=== PATIENT | female | born 1945 | race Caucasian/White ===

== ENCOUNTER → 2018-05-29 | Outpatient (CLI) | payer OTHER | END | disposition home or self-care (01) | LOC: CVU 14:09 | PROVIDERS: ATTEND Internal Medicine Cardiovascular Disease | DX: I34.0 Nonrheumatic mitral (valve) insufficiency (principal); I34.1 Nonrheumatic mitral (valve) prolapse; I11.9 Hypertensive heart disease without heart failure; I73.9 Peripheral vascular disease, unspecified; E78.5 Hyperlipidemia, unspecified; I25.10 Atherosclerotic heart disease of native coronary artery without angina pectoris; Z95.5 Presence of coronary angioplasty implant and graft; Z95.1 Presence of aortocoronary bypass graft | CPT/HCPCS: 93306; 93922 ==

== ENCOUNTER 2018-06-07 08:11 | Day surgery (SDC) | payer OTHER ==
[~2018-06-07] VITALS: Ht 165.1 cm; Wt 82.7 kg
[2018-06-07 08:42] VITALS: BP 141/89
[2018-06-07] MEDS ORDERED: PLEASE ENTER HEIGHT AND WEIGHT MC SCH (09:00)
[2018-06-07] MEDS ORDERED: SODIUM CHLORIDE 0.9% 1,000 ML IV SCH (09:00)
[2018-06-07] MEDS ORDERED: CARV6.252 PO (09:03)
[2018-06-07] MEDS ORDERED: FLUT9.9S NAS (09:10)
[2018-06-07] MEDS ORDERED: CLOP75TA52 PO (09:10)
[2018-06-07] MEDS ORDERED: VALS1TAB22 PO (09:10)
[2018-06-07] MEDS ORDERED: EZET1TAB64 PO (09:10)
[2018-06-07] MEDS ORDERED: WARF2TAB PO (09:10)
[2018-06-07] MEDS ORDERED: LEVO100T PO (09:10)
[2018-06-07] MEDS ORDERED: SERT100T5 PO (09:10)
[2018-06-07] MEDS ORDERED: PROPOFOL 10 MG/ML, 20ML ONE (09:18)
== END 2018-06-07 11:30 | disposition home or self-care (01) ==
LOC: CACL 08:11
PROVIDERS: ATTEND Internal Medicine Cardiovascular Disease
DX: I34.0 Nonrheumatic mitral (valve) insufficiency (principal); I36.1 Nonrheumatic tricuspid (valve) insufficiency; I34.1 Nonrheumatic mitral (valve) prolapse; I25.10 Atherosclerotic heart disease of native coronary artery without angina pectoris; I10 Essential (primary) hypertension; E78.5 Hyperlipidemia, unspecified; Z98.890 Other specified postprocedural states; Z79.899 Other long term (current) drug therapy; Z88.8 Allergy status to other drugs, medicaments and biological substances; Z88.1 Allergy status to other antibiotic agents; Z86.718 Personal history of other venous thrombosis and embolism; Z95.1 Presence of aortocoronary bypass graft
CPT/HCPCS: 93312; 93320; 93325; J2704

== ENCOUNTER → 2021-03-15 | Outpatient (CLI) | payer OTHER ==
[~2021-03-15] MED LIST: CARV6.252 PO; CLOP75TA52 PO; EZET-56 PO; FLUT9.9S NAS; LEVO100T PO; SERT100T32 PO; VALS1TAB22 PO; WARF2TAB PO
== END | disposition home or self-care (01) ==
LOC: CFH 10:02
PROVIDERS: ATTEND Student in an Organized Health Care Education/Training Program
DX: I08.1 Rheumatic disorders of both mitral and tricuspid valves (principal); I11.9 Hypertensive heart disease without heart failure
CPT/HCPCS: 93306; 93356

== ENCOUNTER 2021-04-28 07:04 | Day surgery (SDC) | payer MEDICARE, OTHER ==
[~2021-04-28] VITALS: Ht 165.1 cm; Wt 80.0 kg
[2021-04-28] MEDS ORDERED: SODIUM CHLORIDE 0.9% 1,000 ML IV ONE (08:00)
[2021-04-28] MEDS ORDERED: PLEASE ENTER HEIGHT AND WEIGHT MC SCH (08:00)
[2021-04-28 08:46] LABS: BASOPHILS % (AUTO) 1 % (0-1); EOSINOPHILS % (AUTO) 4 % (1-7); LYMPHOCYTES % (AUTO) 26 % (22-44); MEAN CORPUSCULAR HEMOGLOBIN 29.3 pg (27.0-34.8); MEAN CORPUSCULAR HGB CONC 33.8 g/dL (32.4-35.8); MEAN PLATELET VOLUME 7.9 fL (7.4-10.4); MONOCYTES % (AUTO) 10 % (2-9); NEUTROPHILS % (AUTO) 60 % (42-75); PLATELET COUNT 228 x10^3/uL (130-400); RED BLOOD COUNT 4.36 x10^6/uL (3.82-5.3); RED CELL DISTRIBUTION WIDTH 13.6 % (9.6-15.2)
[2021-04-28 08:52] LABS: INTERNATIONAL NORMALIZED RATIO 1.83 (0.93-1.1)
[2021-04-28 08:54] LABS: ANION GAP 6 mmol/L (5-15); CALCIUM 8.1 mg/dL (8.5-10.1); CHLORIDE 107 mmol/L (98-107); CREATININE 0.62 mg/dL (0.55-1.02)
[2021-04-28] MEDS ORDERED: FENTANYL PF 100 MCG/2ML ONE (11:31)
[2021-04-28] MEDS ORDERED: LIDOCAINE-MPF 1%, 5ML ONE (11:31)
[2021-04-28] MEDS ORDERED: HEPARIN 1,000 UNITS/ML, 10ML ONE (11:31)
[2021-04-28] MEDS ORDERED: MIDAZOLAM 1 MG/ML, 2ML ONE (11:31)
[2021-04-28] MEDS ORDERED: VERAPAMIL 2.5 MG/ML, 2ML ONE (11:31)
[2021-04-28] MEDS ORDERED: SODIUM CHLORIDE 0.9% 1,000 ML IV SCH (14:00)
== END 2021-04-28 15:43 | disposition home or self-care (01) ==
LOC: CACL 07:04
PROVIDERS: ATTEND Internal Medicine Cardiovascular Disease
DX: I34.0 Nonrheumatic mitral (valve) insufficiency (principal); I25.10 Atherosclerotic heart disease of native coronary artery without angina pectoris; I25.82 Chronic total occlusion of coronary artery; I11.0 Hypertensive heart disease with heart failure; I50.9 Heart failure, unspecified; E78.5 Hyperlipidemia, unspecified; M32.9 Systemic lupus erythematosus, unspecified; Z20.822 Contact with and (suspected) exposure to COVID-19; Z88.2 Allergy status to sulfonamides; Z95.1 Presence of aortocoronary bypass graft
CPT/HCPCS: 36415; 80048; 85025; 85610; 87635; 93312; 93321; 93325; 93461; 99156; 99157; C1769; C1887; C1894; J1644; J2250; J3010; Q9967